=== PATIENT | female | born 1955 | race Caucasian/White ===

== ENCOUNTER 2020-07-10 02:39 | Outpatient (CLI) | payer MEDICARE, SELFPAY ==
[2020-07-10 19:47] LABS: SARS-CoV-2 RNA PCR Negative
== END 2020-07-10 02:40 | disposition home or self-care (01) ==
LOC: ANHCOVIDDT 02:40
PROVIDERS: PCP Family Medicine; Visit Provider Internal Medicine Gastroenterology
DX: Z01.812 Encounter for preprocedural laboratory examination (principal); Z20.828 Contact with and (suspected) exposure to other viral communicable diseases
CPT/HCPCS: 87635; C9803; U0003

== ENCOUNTER → 2020-07-11 13:30 | Outpatient (CLI) | payer MEDICARE, SELFPAY ==
--- NOTE | ~2020-07-11 | MM_ITS ---
EXAMINATION: MM screening [facility] BI w darnell HISTORY: Screening mammogram TECHNIQUE: Craniocaudal and mediolateral oblique 3-D tomosynthesis images were obtained and synthetic 2-D images were generated. CAD analysis was submitted and interpreted. COMPARISON: 11/09/2018, 10/26/2018, 09/30/2017 BREAST PARENCHYMAL COMPOSITION: The breasts are heterogeneously dense, which may obscure small masses . FINDINGS: RIGHT BREAST: There is no evidence of suspicious mass, calcification, or architectural distortion to suggest malignancy. There has been no significant interval change. LEFT BREAST: An asymmetry is present in the middle/posterior third of the outer breast 9 cm from the nipple on craniocaudal tomosynthesis image 32/75. IMPRESSION: 1. Left breast asymmetry on the craniocaudal view. 2. Additional mammographic views and possible breast ultrasound are recommended. BI-RADS Category 0: Incomplete: Needs additional imaging evaluation. Reviewed, dictated and finalized at location A. ONAL PRODUCTION MANAGER IMPRESSION: 1. Left breast asymmetry on the craniocaudal view. 2. Additional mammographic views and possible breast ultrasound are recommended . BI-RADS Category 0: Incomplete: Needs additional imaging evaluation.
== END ==
PROVIDERS: PCP Family Medicine; Visit Provider Physician Assistant
DX: Z12.31 Encounter for screening mammogram for malignant neoplasm of breast (principal); R92.8 Other abnormal and inconclusive findings on diagnostic imaging of breast
CPT/HCPCS: 77063; 77067

== ENCOUNTER 2020-07-13 04:26 | Day surgery (SDC) | payer MEDICARE, SELFPAY ==
[2020-07-06 15:08] VITALS: BMI 24.5
[2020-07-13 08:41] VITALS: BP 141/85; PULSE 66; RESP 20; O2SAT 99
[2020-07-13] MEDS: LACTATED RINGERS 1,000 ML 150 ML IV CONT (08:58)
--- NOTE | 2020-07-13 09:04 | WPDANESEPPF ---
Anes - Initial Pre Proc Eval Procedure: Operation Date: 07/13/20 10:15 Proposed Procedures p Screening Colonoscopy - Erich Zarate MD Date/Time: 07/13/20 09:04 Surgeon: Erich Zarate MD Pre Op Diagnosis: Neoplasm Screening Patient Data Age: 64 Gender: F Height: 5 ft 5 in Weight: 65.8 kg Last Vital Signs Pulse 66 07/13/20 08:41 Resp 20 07/13/20 08:41 BP 141/85 H 07/13/20 08:41 Pulse Ox 99 07/13/20 08:41 Allergies Allergy/AdvReac Type Severity Reaction Status Date / Time amoxicillin Allergy Unknown Hives Verified 07/13/20 08:40 Home Medications Medication Instructions Recorded Confirmed Type No Home Medications 07/13/20 07/13/20 History Patient hx anesthesia problems: none Family hx anesthesia problems: none PMFSH Past Medical History Medical History Abnormal results of thyroid function studies Elevated blood-pressure reading, without diagnosis of hypertension Hypothyroidism, unspecified Family History Family History Mother Hypertension Patient's mother is in good health Carcinoma of colon Father Family history of Alzheimer's disease, Onset Age: 60 Social History Social History Social History: Smoking status: Never smoker Second hand tobacco smoke exposure: No Alcohol intake: current Drinks per week: 7 Substance use: never Substance use type: unknown Living arrangements: with family Gender identity (if verbalized by the patient): Female Spiritual care concerns: No Anes - Eval Final PreProcedure Day of Procedure 07/13/20 09:04 Patient weight: normal Heart: regular rate and rhythm Lungs: clear to auscultation Airway: Mallampati scale class II Neurological: alert and oriented Last oral intake: >/= 8 hours ASA classification: II Emergent: no Anesthetic plan: proceed Anesthesia type and monitoring: general GIVS and standard monitoring Informed Consent: The patient's anesthetic plan and its attendant risks and benefits were discussed with the patient/family/POA. Questions were solicited and answers provided to the satisfaction of the patient/family/POA.
--- NOTE | 2020-07-13 09:50 | PM.HPGS ---
History of Present Illness History of Present Illness Consent: Risks, benefits, and alternatives have been discussed and questions answered. Patient agrees to proceed with procedure. Chief complaint: Neoplasm Screening Narrative: Cristy Obando is a 64 year old female here for screening colon, last one 2014. Mother with colon ca. Review of Systems Constitutional: Constitutional: Denies headache(s) and Denies weakness Eyes: Eyes: Denies blurry vision ENT: Reports Normal hearing present, Denies headache(s) and Denies neck pain Cardiovascular: Cardiovascular: Denies chest pain and Denies dyspnea Respiratory: Respiratory: Denies dyspnea Gastrointestinal: Gastrointestinal: Reports no additional gastrointestinal complaints Genitourinary: Genitourinary: Denies dysuria Musculoskeletal: Musculoskeletal: Denies neck pain Integumentary/Breasts: Skin/Breast: Denies dry skin Neurologic: Reports Normal hearing present, Denies headache(s) and Denies weakness Psychiatric: Psychiatric: Denies anxiety Endocrine: Endocrine: Denies change in body appearance Hematologic/Lymphatic: Hematologic/Lymphatic: Denies easy bleeding Allergic/Immunologic: Allergic/Immunologic: Denies urticaria PMFSH Past Medical History Medical History Abnormal results of thyroid function studies Elevated blood-pressure reading, without diagnosis of hypertension Hypothyroidism, unspecified Family History Family History Mother Hypertension Patient's mother is in good health Carcinoma of colon Father Family history of Alzheimer's disease, Onset Age: 60 Social History Social History Social History: Smoking status: Never smoker Second hand tobacco smoke exposure: No Alcohol intake: current Drinks per week: 7 Substance use: never Substance use type: unknown Living arrangements: with family Gender identity (if verbalized by the patient): Female Spiritual care concerns: No Meds Home Medications and Allergies Home Medications Medication Instructions Recorded Confirmed Type No Home Medications 07/13/20 07/13/20 History Allergies Allergy/AdvReac Type Severity Reaction Status Date / Time amoxicillin Allergy Unknown Hives Verified 07/13/20 08:40 Vital Signs Vital Signs - 24 hr 07/13/20 08:41 Pulse Rate 66 Respiratory Rate 20 Blood Pressure 141/85 H Pulse Oximetry 99 Exam Const: General: comfortable and no acute distress HENMT: General nose exam: Normal nares present Eyes: General: appearance normal, both eyes and all related structures Neck: Neck: no JVD Resp: Auscultation: clear to auscultation bilaterally Cardio: Rate: regular rate Rhythm: regular rhythm GI: Inspection: non-distended GI Palp: Yes Soft to palpation Skin: General skin exam: normal color Neuro: General: gait normal Speech: normal speech Extrem: General: normal to inspection Psych: Mental Status: mental status grossly normal Assessment and Plan Assessment and plan (1) Family history of colon cancer in mother: Code(s): Z80.0 - Family history of malignant neoplasm of digestive organs Status: Acute Assessment and Plan: will proceed with colonoscopy
[2020-07-13 10:12] VITALS: BP 104/63; PULSE 60; RESP 20; O2SAT 97
[2020-07-13 10:22] VITALS: BP 116/72; PULSE 66; RESP 18; O2SAT 100
[2020-07-13 10:32] VITALS: BP 127/75; PULSE 61; RESP 15; O2SAT 100
[2020-07-13 10:42] VITALS: BP 136/72; PULSE 57; RESP 18; O2SAT 100
== END 2020-07-13 10:51 | disposition home or self-care (01) ==
PROVIDERS: PCP Family Medicine; Visit Provider Internal Medicine Gastroenterology
PROC: 0DJD8ZZ Inspection of Lower Intestinal Tract, Via Natural or Artificial Opening Endoscopic (ICD-10-PCS; CPT 45378; principal; 2020-07-13 10:15)
DX: Z12.11 Encounter for screening for malignant neoplasm of colon (principal); K64.8 Other hemorrhoids; Z80.0 Family history of malignant neoplasm of digestive organs
CPT/HCPCS: G0105; J2704; J7120

== ENCOUNTER → 2020-08-02 07:52 | Outpatient (CLI) | payer MEDICARE, SELFPAY ==
--- NOTE | ~2020-08-02 | MMUS_ITS ---
EXAMINATION: MM diagnostic mammo unilat LT, US breast LT complete HISTORY: Follow-up left breast asymmetry TECHNIQUE: Additional 3-D tomosynthesis images of the left breast were performed and synthetic 2-D im ages were generated. CAD analysis was submitted and interpreted. High resolution complete left breast ultrasound was performed. COMPARISON: Comparison to multiple prior studies sequentially, with oldest reviewed study dated 02/2018. BREAST PARENCHYMAL COMPOSITION: The breasts are heterogenously dense, which may obscure small masses FINDINGS: MAMMOGRAPHIC FINDINGS: There are focal asymmetries in the upper aspect of the left breast, although no discrete mass is iden tified. There are no suspicious calcifications. ULTRASOUND: Left breast ultrasound: At 11:00, 6 cm from the nipple, there is an irregular shaped hypoechoic mass measuring 1.6 cm greatest dimension. There is dense posterior shadowing with slightly irregular carey ns. There is marginal vascularity. At 2:00, 6 cm from the nipple, there is an irregular shaped hypoec hoic mass with dense posterior shadowing measuring approximately 2 cm. No significant internal vascul arity. No other discrete solid or cystic masses in the left breast. IMPRESSION: 1. 2 separate abnormal left breast masses located at 11 and 2:00 positions. Recommend ultrasound-guid ed biopsy of these lesions. BI-RADS CATEGORY 4-SUSPICIOUS ABNORMALITY RECOMMENDATION: Ultrasound-guided left breast biopsies recommended. Reviewed, dictated and finalized at location A. CHOOL LEAD TEACHER IMPRESSION: 1. 2 separate abnormal left breast masses located at 11 and 2:00 positions. Rec ommend ultrasound-guided biopsy of these lesions. BI-RADS CATEGORY 4-SUSPICIOUS ABNORMALITY RECOMMENDATION: Ultrasound-guided left breast biopsies recommended.
== END ==
PROVIDERS: Visit Provider Physician Assistant
DX: N63.22 Unspecified lump in the left breast, upper inner quadrant (principal)
CPT/HCPCS: 76641; 77065

== ENCOUNTER 2020-08-27 10:12 | Outpatient (CLI) | payer MEDICARE, SELFPAY ==
--- NOTE | ~2020-08-27 | US_ITS ---
EXAMINATION: US breast LT limited HISTORY: Patient presents for ultrasound guided biopsy of two left breast masses. TECHNIQUE: Limited ultrasound in the upper outer quadrant and upper inner quadrant of the left breast was performed. FINDINGS: At real-time scanning, no discrete mass is identified at the 2:00 location or the 11:00 loc ation to target for ultrasound guided biopsy. This was discussed with the patient and a course of ashtyn rt-term interval follow-up mammogram and ultrasound in six months were agreed upon. IMPRESSION: Probably benign left breast findings. Left diagnostic mammogram and ultrasound in six months are jailene mmended. BI-RADS category 3, probably benign findings. Reviewed, dictated and finalized at location A. NG MACHINE TENDER IMPRESSION: Probably benign left breast findings. Left diagnostic mammogram and ultrasound in six months are recommended. BI-RADS category 3, probably benign findings.
== END 2020-08-27 10:13 | disposition home or self-care (01) ==
PROVIDERS: PCP Family Medicine; Visit Provider Surgery
DX: R92.8 Other abnormal and inconclusive findings on diagnostic imaging of breast (principal)
CPT/HCPCS: 76642

== ENCOUNTER → 2021-04-23 08:23 | Outpatient (CLI) | payer MEDICARE, SELFPAY ==
--- NOTE | ~2021-04-23 | DEXA_ITS ---
Bone Density Report Name: Cristy Obando Age: 65 Sex: Female Ethnicity: White Date of : 1955 Indication: postmenopausal; screening for osteoporosis; Referring Provider: LARRY GARCIA Study: Bone densitometry was performed. Exam Date: April 23, 2021 Accession number: [id number] Bone Density: Region BMD T-score Z-score Classification AP Spine (L1-L4) 1.027 -0.2 1.7 Normal Femoral Neck (Left) 0.683 -1.5 0.1 Osteopenia Total Hip (Left) 0.855 -0.7 0.6 Normal Femoral Neck (Right) 0.676 -1.6 0.1 Osteopenia Total Hip (Right) 0.819 -1.0 0.3 Normal Total Hip Mean 0.837 -0.9 0.5 Normal World Health Organization criteria for BMD impression classify patients as: Normal (T-score at or above -1.0), Osteopenia (T-score between -1.0 and -2.5), or Osteoporosis (T-score at or below -2.5). 10-year Fracture Risk(1): Major Osteoporotic Fracture 9.1% Hip Fracture 1.1% Reported Risk Factors: [place] (), Neck BMD=0.676, BMI=23.0 (1) FRAX(R) Version 3.08. Fracture probability calculated for an untreated patient. Fracture probability may be lower if the patient has received treatment. Clinical Information Provided by Patient: Patient maximum height was 65.5 Menopause Age: 53 Does not regularly consume dairy products Onset of menses at age 11 Number of children 3 Impression: The patient has low bone mass, based on the Right Femoral Neck T-score. The patient has an estimated ten-year risk of hip fracture of 1.1% and an estimated ten-year risk of major fracture of 9.1%, based on the WHO FRAX algorithm. Discussion: BONE DENSITY IS LOW AT ONE OR MORE SKELETAL SITES. This patient's lowest T-score is low at one or more skeletal sites. It meets the World Health Organization's (WHO) criteria for ?low bone mass? (T-score between -1.0 and -2.5). The patient's 10-year risk of fracture as calculated by FRAX is less than the threshold where pharmacological therapy is recommended by the National Osteoporosis Foundation (NOF). However, all treatment decisions require clinical judgment and consideration of individual patient factors, including patient preferences, comorbidities, previous drug use, risk factors not captured in the FRAX model (e.g., frailty, falls, vitamin D deficiency, increased bone turnover, interval significant decline in bone density) and possible under or overestimation of fracture risk by FRAX. The patient should follow a healthful lifestyle (good nutrition with adequate calcium and vitamin D, and appropriate weight-bearing exercise). Follow-Up: Consider repeating this study in 2 to 3 years to reassess this patient's status, or sooner if there is some new clinical indication. Reported by: JOCY on 04/23/2021 8:45:00 AM. Reviewed, d
--- NOTE | ~2021-04-23 | MMUS_ITS ---
EXAMINATION: MM diagnostic [facility] LT w darnell, US breast LT limited HISTORY: Follow-up left breast asymmetry TECHNIQUE: Additional 3-D tomosynthesis images of the left breast were performed and synthetic 2-D im ages were generated. CAD analysis was submitted and interpreted. High resolution Limited left breast ultrasound was performed. COMPARISON: Comparison to multiple prior studies sequentially, with oldest reviewed study dated 02/2018. BREAST PARENCHYMAL COMPOSITION: Breast composed of scattered areas of fibroglandular density. FINDINGS: MAMMOGRAPHIC FINDINGS: There are no suspicious masses, calcifications or architectural distortion in the left breast to sugg est malignancy. ULTRASOUND: Limited left breast ultrasound: At 11:00, 5 cm from the nipple there is a 5 mm cyst. No other discret e mass is identified. There are multiple areas of heterogeneous shadowing tissue without discrete mas s. No sonographic evidence for malignancy. IMPRESSION: 1. No evidence for malignancy in the left breast. 2. Routine yearly screening mammogram and regular clinical breast examination are recommended. BI-RADS CATEGORY 2 - BENIGN FINDINGS Reviewed, dictated and finalized at location A. IMPRESSION: 1. No evidence for malignancy in the left breast. 2. Routine yearly screening mammogram and regular clinical breast examination a re recommended. BI-RADS CATEGORY 2 - BENIGN FINDINGS
== END ==
PROVIDERS: PCP Family Medicine; Visit Provider Family Medicine
DX: R92.8 Other abnormal and inconclusive findings on diagnostic imaging of breast (principal); Z78.0 Asymptomatic menopausal state; M85.89 Other specified disorders of bone density and structure, multiple sites
CPT/HCPCS: 76642; 77061; 77065; 77080; G0279

== ENCOUNTER → 2022-08-09 11:17 | Outpatient (CLI) | payer MEDICARE, SELFPAY ==
--- NOTE | ~2022-08-09 | MM_ITS ---
EXAMINATION: MM screening [facility] w darnell HISTORY: Screening TECHNIQUE: Craniocaudal and mediolateral oblique 3-D tomosynthesis images were obtained and synthetic 2-D images were generated. CAD analysis was submitted and interpreted. COMPARISON: Comparison to multiple prior studies sequentially, with oldest reviewed study dated 02/2018. BREAST PARENCHYMAL COMPOSITION: The breasts are heterogeneously dense, which may obscure small masses . FINDINGS: There is no evidence of suspicious mass, calcification, or architectural distortion to sugg est malignancy in either breast. There has been no suspicious interval change. IMPRESSION: 1. No mammographic evidence of malignancy. 2. Recommend routine screening mammography in one year. BI-RADS Category 1: Negative Reviewed, dictated and finalized at location A. RATOR INSERTER
== END ==
PROVIDERS: PCP Family Medicine; Visit Provider Family Medicine
DX: Z12.31 Encounter for screening mammogram for malignant neoplasm of breast (principal)
CPT/HCPCS: 77063; 77067

== ENCOUNTER → 2023-06-23 15:12 | Outpatient (CLI) | payer MEDICARE, SELFPAY ==
--- NOTE | ~2023-06-23 | XR_ITS ---
XR lumbar spine 2-3V DATE: 06/23/2023 15:31 INDICATION: Low back pain TECHNIQUE: Standing AP and lateral views COMPARISON: None FINDINGS: There is diffuse osteopenia. There is rotatory levoscoliosis of the thoracolumbar spine. There is mild compensatory lower lumbar d extroscoliosis. There is approximately 7 mm leftward translation at L2-3. There is degenerative change at the apophyseal joints in the lower lumbar area in particular with ass ociated grade 1 anterolisthesis at L4-5 and borderline grade 1/grade 2 anterolisthesis at L5-S1. Moderately severe degenerative disc disease at L2-3 and L3-4 on the left in particular moderate degen erative disease at the remaining lumbar interspaces. The sacroiliac joints are intact. IMPRESSION: Rotatory levoscoliosis of the thoracic and upper lumbar spine and mild compensatory dextr o scoliosis of the lower lumbar spine Multilevel degenerative disease, most prominent on the left at L2-3 and L3-4 7 mm leftward translation at L2-3 Grade 1 anterolisthesis at L4-5 and borderline grade 1/grade 2 anterolisthesis at L5-S1 due to degene rative change at the apophyseal joints Osteopenia Reviewed, dictated and finalized at location L. IMPRESSION: Rotatory levoscoliosis of the thoracic and upper lumbar spine and m ild compensatory dextro scoliosis of the lower lumbar spine Multilevel degenerative disease, most prominent on the left at L2-3 and L3-4 7 mm leftward translation at L2-3 Grade 1 anterolisthesis at L4-5 and borderline grade 1/grade 2 anterolisthesis at L5-S1 due to degenerative change at the apophyseal joints Osteopenia
--- NOTE | ~2023-06-23 | XR_ITS ---
XR_CERV2-3V_CR DATE: 06/23/2023 15:31 INDICATION: Neck pain TECHNIQUE: AP, open-mouth, lateral views COMPARISON: None FINDINGS: There is straightening of the cervical spine. There is mild cervicothoracic dextroscoliosis . Osteopenia. C1 and C2 are normally aligned and the odontoid process is intact. There is approximately 2 mm anterolisthesis at C3-4. Moderate degenerative disc disease at C4-5 and moderately severe degenerative disc disease at C5-6 an d C6-7. There is uncovertebral joint spurring in the mid and lower cervical spine from C3-4 through C6-7. The re is degenerative change at the apophyseal joints throughout the cervical spine. No fracture or dislocation or locked facet or prevertebral soft tissue swelling is detected. IMPRESSION: Straightening and mild dextro scoliosis Osteopenia 2 mm anterolisthesis at C3-4 Multilevel degenerative disc disease, most prominent C5-6 and C6-7 Uncovertebral joint spurring at C3-4 through C6-7 and degenerative change of the apophyseal joints th roughout the cervical spine Reviewed, dictated and finalized at Location A. Reviewed, dictated and finalized at location L. IMPRESSION: Straightening and mild dextro scoliosis Osteopenia 2 mm anterolisthesis at C3-4 Multilevel degenerative disc disease, most prominent C5-6 and C6-7 Uncovertebral joint spurring at C3-4 through C6-7 and degenerative change of th e apophyseal joints throughout the cervical spine
== END ==
PROVIDERS: PCP Physician Assistant; Visit Provider Physician Assistant
DX: M54.50 Low back pain, unspecified (principal); M41.84 Other forms of scoliosis, thoracic region; M41.86 Other forms of scoliosis, lumbar region; M51.36 Other intervertebral disc degeneration, lumbar region; M43.16 Spondylolisthesis, lumbar region; M85.89 Other specified disorders of bone density and structure, multiple sites; M43.12 Spondylolisthesis, cervical region; M50.323 Other cervical disc degeneration at C6-C7 level
CPT/HCPCS: 72040; 72100

== ENCOUNTER 2024-02-02 13:22 | Outpatient (CLI) | payer MEDICARE, SELFPAY ==
--- NOTE | ~2024-02-02 | MM_ITS ---
EXAMINATION: MM screening [facility] BI w darnell HISTORY: Screening TECHNIQUE: Craniocaudal and mediolateral oblique 3-D tomosynthesis images were obtained and synthetic 2-D images were generated. CAD analysis was submitted and interpreted. COMPARISON: Comparison to multiple prior studies sequentially, with oldest reviewed study dated 12/2018. BREAST PARENCHYMAL COMPOSITION: Dense: The breasts are heterogeneously dense, which may obscure small masses FINDINGS: There is no evidence of suspicious mass, calcification, or architectural distortion to sugg est malignancy in either breast. There has been no suspicious interval change. IMPRESSION: 1. No mammographic evidence of malignancy. 2. Recommend routine screening mammography in one year. BI-RADS Category 1: Negative Reviewed, dictated and finalized at location B.
== END 2024-02-02 13:23 ==
LOC: MICIMG 13:23
PROVIDERS: PCP Family Medicine; Visit Provider Physician Assistant
DX: Z12.31 Encounter for screening mammogram for malignant neoplasm of breast (principal)
CPT/HCPCS: 77063; 77067

== ENCOUNTER 2024-04-11 12:41 | Outpatient (CLI) | payer MEDICARE, SELFPAY ==
--- NOTE | ~2024-04-11 | DEXA_ITS ---
Bone Density Report Name: RAINE LOUIS Age: 68 Sex: Female Ethnicity: White Date of : 1955 Indication: postmenopausal; screening for osteoporosis; height loss; Referring Provider: SIMONE HERNANDEZ Study: Bone densitometry was performed. Exam Date: April 11, 2024 Accession number: [id number] Bone Density: Region BMD T-score Z-score Classification AP Spine(L1-L4) 1.097 0.5 2.6 Normal Femoral Neck (Left) 0.683 -1.5 0.3 Osteopenia Total Hip (Left) 0.799 -1.2 0.3 Osteopenia Femoral Neck (Right) 0.726 -1.1 0.7 Osteopenia Total Hip (Right) 0.811 -1.1 0.4 Osteopenia Total Hip Mean 0.805 -1.2 0.4 Osteopenia World Health Organization criteria for BMD impression classify patients as: Normal (T-score at or above -1.0), Osteopenia (T-score between -1.0 and -2.5), or Osteoporosis (T-score at or below -2.5). 10-year Fracture Risk(1): Major Osteoporotic Fracture 10% Hip Fracture 1.5% Reported Risk Factors: [place] (), Neck BMD=0.683, BMI=24.6 (1) FRAX(R) Version 3.08. Fracture probability calculated for an untreated patient. Fracture probability may be lower if the patient has received treatment. Clinical Information Provided by Patient: Has used the following medications: Vitamin D, Calcium Patient maximum height was 65.5 Does not regularly consume dairy products Drinks caffeinated beverages Onset of menses at age 12 Number of children 3 Impression: The patient has low bone mass, based on the Left Femoral Neck T-score. The patient has an estimated ten-year risk of hip fracture of 1.5% and an estimated ten-year risk of major fracture of 10%, based on the WHO FRAX algorithm. Discussion: BONE DENSITY IS LOW AT ONE OR MORE SKELETAL SITES. This patient's lowest T-score is low at one or more skeletal sites. It meets the World Health Organization's (WHO) criteria for ?low bone mass? (T-score between -1.0 and -2.5). The patient's 10-year risk of fracture as calculated by FRAX is less than the threshold where pharmacological therapy is recommended by the National Osteoporosis Foundation (NOF). However, all treatment decisions require clinical judgment and consideration of individual patient factors, including patient preferences, comorbidities, previous drug use, risk factors not captured in the FRAX model (e.g., frailty, falls, vitamin D deficiency, increased bone turnover, interval significant decline in bone density) and possible under or overestimation of fracture risk by FRAX. The patient should follow a healthful lifestyle (good nutrition with adequate calcium and vitamin D, and appropriate weight-bearing exercise). Follow-Up: Consider repeating this study in 2 to 3 years to reassess this patient's status, or sooner if there is some new clinical indication. Repo
== END 2024-04-11 12:42 | disposition home or self-care (01) ==
PROVIDERS: PCP Family Medicine; Visit Provider Physician Assistant
DX: Z78.0 Asymptomatic menopausal state (principal); M85.852 Other specified disorders of bone density and structure, left thigh; M85.851 Other specified disorders of bone density and structure, right thigh
CPT/HCPCS: 77080

== ENCOUNTER 2025-03-13 13:57 | Outpatient (CLI) | payer MEDICARE, SELFPAY ==
--- OUTSIDE RECORDS SUMMARY | 2025-03-13 14:01 | XMS_ITS | Clinical Summary ---
Author Organization [facility] Elvie valderrama Quirino Address [address] [facility] [place] [address] Care Team Providers Care Hardware Design Engineer Name Role Phone Unavailable Primary Care Provider Unavailabl e Allergies Active Allergy Reactions Criticality Noted Date Comments Amoxicillin Rash Low 03/13/2025 Medications levothyroxine 50 mcg tablet TAKE 1 TABLET BY MOUTH ONCE DAILY THURSDAY THRU THURSDAY AND 2 TABLETS ON THURSDAY AND Thursday02/07/2025 Active Encounters Date Type Department Care Team Description 03/13/2025 1:30 PM CDT Office Visit [facility] Oncology and Hematology - [place] [address] [facility] [address] [place] [address] Aurelio Fernandez MD Leukopenia, unspecified type (Primary Dx); Chronic anemia from Last 3 Months Family History Medical History Relation Name Comments No Known Problems Brother 1 Lung Cancer Brother 2 No Known Problems Child 1 No Known Problems Child 2 No Known Problems Child 3 Heart Disease Mother No Known Problems Sister 1 No Known Problems Sister 2 No Known Problems Sister 3 No Known Problems Sister 4 Relation Name Status Comments Brother 1 Alive Brother 2 Alive Child 1 Alive Child 2 Alive Child 3 Alive Father Mother Alive Sister 1 Alive Sister 2 Alive Sister 3 Alive Sister 4 Alive Social History Tobacco Use Types Packs/Day Years Used Date Smoking Tobacco: Never Smokeless Tobacco: Never Tobacco Cessation:Counseling Given: Not Answered Alcohol Use Standard Drinks/Week Comments Yes 0 (1 standard drink = 0.6 oz pur e alcohol) socially Comments Unknown Sex and Gender Information Value Date Recorded Sex Assigned at Not on file Legal Sex Female 11:49 AM CDT Gender Identity Not on file Sexual Orientation Not on file Last Filed Vital Signs Vital Sign Reading Time Taken Comments Blood Pressure 97/65 03/13/2025 1:20 PM CDT Pulse 67 03/13/2025 1:17 PM CDT Temperature 37.1 C (98.7 F) 03/13/2025 1:17 PM CDT Respiratory Rate 16 03/13/2025 1:17 PM CDT Oxygen Saturation 96% 03/13/2025 1:17 PM CDT Inhaled Oxygen Concentration - - Weight 66 kg (145 lb 9.6 oz) 03/13/2025 1:17 PM CDT Height - - Body Mass Index - - Plan of Treatment Upcoming Encounters Date Type Department Care Team (Late st Contact Info) Description 04/18/2025 4:35 PM CDT Telephone Check Up [facility] Oncology and Hematology [facility] [address] [facility] [address] [place] [address] Aurelio Fernandez MD [address] [facility] [employer] [address] [place] [address] Health Maintenance Due Date Last Done Comments DTAP/TDAP/TD VACCINES (1 - Tdap) 1972 BREAST CANCER SCREENING 1993 COLORECTAL SCREENING 1998 Colorectal Cancer Screening 1998 FIT-DNA Q 3 years 1998 FIT/FOBT Q 1 year 1998 Flex Sig/CT Colonography Q 5 years 1998 PNEUMOCOCCAL VACCINE 50+ YEA RS (1 of 1 - PCV) 11/30/2003 ZOSTER VACCINE (1 of 2) 11/30/2003 OSTEOPOROSIS SCREENING 2018 COVID-19 Vaccine ( season) 04/24/202407/2021, 10/05/2020 [place]) Prev entative Visit/Annual Wellness Visit 08/24/2024 INFLUENZA VACCINE (#1) 2025 RSV VACCINE (60+ or ) (1 - 1-dose 75+ series) 2028 Insurance [employer] PPO [facility]
--- OUTSIDE RECORDS SUMMARY | 2025-03-13 14:01 | XMS_ITS | Encounter Summary ---
Author Organization [facility] AMADEO Castelan [facility] Address [address] [place] [address] Care Team Providers Care Soda Fountain Manager Name Role Phone Unavailable Primary Care Provider Unavailabl e Reason for Referral * Radiology Services (Routine) - Closed Specialty Diagnoses / Procedures Referred By Contac t Referred To Contact Diagnoses Leukopenia, unspecified type Procedures US ABDOMEN COMPLETE Aurelio Fernandez MD [address] [place] [phone] Phone: tel: fax: [place] [phone] Referral ID Status Reason Start Date Expiration Date V isits Requested Visits Authorized [id number] Closed [facility] CTS 03/13/2025 04/13/2026 1 1 Encounter Details Date Type Department Care Team (Late st Contact Info) Description 03/13/2025 1:30 PM CDT Office Visit [facility] Oncology and Hematology [address] [facility] [address] [place] [address] Aurelio Fernandez MD [address] [place] [address] Leukopenia, unspecified type (Primary Dx); Chronic anemia Social History Tobacco Use Types Packs/Day Years [...] on file Sexual Orientation Not on file documented as of this encounter Last Filed Vital Signs Vital Sign Reading [...] - - Body Mass Index - - documented in this encounter Plan of Treatment Upcoming Encounters Date Type Department Care Team (Late st Contact Info) Description 04/18/2025 4:35 PM CDT Telephone Check Up [facility] Oncology and Hematology - [place] [address] [facility] [address] [place] [address] Aurelio Fernandez MD [address] [facility] [address] [place] [address] Scheduled Orders Name Type Priority Associated Diagnoses Orde r Schedule CBC WITH DIFFERENTIAL Lab Stat Chronic anemia Expected: 03/13/2025, Expires: 03/13/2026 COMPREHENSIVE METABOLIC PANEL Lab Stat Chronic anemia Expected: 03/13/2025, Expires: 03/13/2026 FERRITIN Lab Routine Chronic anemia Expected: 03/13/2025, Expires: 03/13/2026 IRON, TIBC, AND PERCENT SATURATION Lab Routine Chronic anemia Expected: 03/13/2025, Expires: 03/13/2026 VITAMIN B12 AND FOLATE Lab Routine Chronic anemia Expected: 03/13/2025, Expires: 03/13/2026 METHYLMALONIC ACID Lab Routine Chronic anemia Expected: 03/13/2025, Expires: 03/13/2026 TRANSFERRIN RECEPTOR TFR SOLUBLE Lab Routine Chronic anemia Expected: 03/13/2025, Expires: 03/13/2026 US ABDOMEN COMPLETE Imaging Routine Leukopenia, unspecified type 1 Occurrences starting 03/13/2025 until 03/13/2026 ONEL SCREEN W/REFLEX Lab Routine Leukopenia, unspecified type Expected: 03/13/2025, Expires: 03/13/2026 FLOW CYTOMETRY PANEL Lab Routine Leukopenia, unspecified type Expected: 03/13/2025, Expires: 03/13/2026 documented as of this encounter Visit Diagnoses Diagnosis Leukopenia, unspecified type- Primary Chronic anemia Anemia, unspecified documented in this encounter
--- OUTSIDE RECORDS SUMMARY | 2025-03-13 14:01 | XMS_ITS | Clinical Summary ---
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 Gender Identity Not on file Sexual Orientation Not on file Plan of Treatment Health Maintenance Due Date Last Done Comments Colorectal Cancer Screening Colonoscopy (10 Years) 1955 Hepatitis C 11/30/1971 DTaP, Tdap and Td Vaccines ( 1 - Tdap) 1972 Mammogram Screening 1993 Annual Medicare Wellness Visit 2018 Dexa Scan (General) 2018 Pneumococcal Vaccine: 50+ Years (2 of 2 - PPSV23) 06/07/2021 06/07/2020 COVID-19 Vaccine (3 - 2023-2 5 season) 2024 11/02/2020, 10/05/2020 RSV Immunization or 60+ Years (1 - 1-dose 75+ series) 2028 Zoster Vaccines Completed 08/29/2020, 06/07/2020 Meningococcal B Vaccine Aged Out No l onger eligible based on patient's age to complete this topic Meningococcal Vaccine Aged Out No kalee yvon eligible based on patient's age to complete this topic RSV Immunizations Under 20 Months Aged Out No longer eligible b ased on patient's age to complete this topic Insurance HUMANA Care Teams Mash Grinder Relationship Specialty Start Date End Date None, Provider, PCP - General 11/02/20
--- NOTE | 2025-03-13 14:08 | CY_PTH ---
PATIENT: Cristy Obando LOC: ANHLAB #:[id number] AGE/SX: 69/F ROOM: RE03/13/[address]: Aurelio Fernandez MD : 1955 BED: DIS: 03/13/2025 SPEC #: [id number] RECD: 03/14/25 08:09 STATUS: CANDI REQ #: [id number] KEVIN: 03/13/25 14:[address]: Aurelio Fernandez DEPT: [facility] Cytology RECD BY: Delia Phillip ENTERED: 03/14/25 08:10 SP TYPE: Cytology OTHR DR: Casey Feldman MD Tissues: A - Peripheral Blood Procedures: Flow Cytometry
[2025-03-13 14:15] LABS: Hematocrit 38.4 % (37.0-47.0); Hemoglobin 12.6 g/dL (12.0-15.0); Immature Granulocyte Percent A 0.0 % (0-0.5); Lymphocytes Absolute Auto 1.25 K/mm3 (0.9-3.2); Mean Corpuscular HGB Conc 32.8 g/dl (32-36); Mean Corpuscular Hemoglobin 33.2 pg (26-34); Mean Corpuscular Volume 101.3 fl (80-100); Nucleated Red Blood Cells Absolute Auto 0.000 K/mm3 (0.0-0.012); Nucleated Red Blood Cells Perc 0.0 % (0.0-0.2); Platelet Count Result 198 k/mm3 (150-375); Red Blood Count 3.79 M/mm3 (4.2-5.4); White Blood Count 4.4 K/mm3 (4.5-10.0)
[2025-03-13 16:41] LABS: Iron 147 ug/dL (37-170)
[2025-03-13 16:42] LABS: Alanine Aminotransferase 19 U/L (6-35); Albumin Level 4.7 g/dL (3.5-5.1); Alkaline Phosphatase 46 U/L (38-126); Anion Gap 7 mmol/L (4-12); Aspartate Amino Transferase 38 U/L (14-36); Bilirubin,Total 0.6 mg/dL (0.2-1.3); Blood Urea Nitrogen 29 mg/dL (7-17); Calcium 9.4 mg/dL (8.4-10.2); Carbon Dioxide 25 mmol/L (22-30); Chloride 103 mmol/L (98-107); Estimated Glomerular Filt Rate 51; Glucose 92 mg/dL (65-110); Potassium 4.0 mmol/L (3.4-5.0); Sodium 135 mmol/L (137-145); Total Protein 7.6 g/dL (6.3-8.2)
[2025-03-13 16:50] LABS: Percent Iron Saturation 50 % (20-50)
[2025-03-13 17:17] LABS: Ferritin 85.00 ng/mL (11.1-264)
[2025-03-13 17:53] LABS: Vitamin B12 482.0 pg/mL (239-931)
[2025-03-15 09:08] LABS: ANA by IFA Rfx Titer/Pattern Negative (.)
== END 2025-03-13 13:58 | disposition home or self-care (01) ==
LOC: ANHLAB 13:59
PROVIDERS: PCP Family Medicine; Visit Provider Internal Medicine Hematology & Oncology
DX: D64.9 Anemia, unspecified (principal); D72.819 Decreased white blood cell count, unspecified
CPT/HCPCS: 36415; 80053; 82607; 82728; 82746; 83540; 83550; 83921; 84238; 85025; 86038; 88184

== ENCOUNTER 2025-04-10 13:57 | Outpatient (CLI) | payer MEDICARE, SELFPAY ==
--- NOTE | ~2025-04-10 | MM_ITS ---
EXAMINATION: MM screening [facility] BI w darnell HISTORY: Screening mammogram TECHNIQUE: Craniocaudal and mediolateral oblique 3-D tomosynthesis images were obtained and synthetic 2-D images were generated. CAD analysis was submitted and interpreted. COMPARISON: 02/02/2024, 08/09/2022, 04/23/2021 BREAST PARENCHYMAL COMPOSITION:Not Dense. There are scattered areas of fibroglandular density. FINDINGS: No suspicious mass, calcification, or architectural distortion are identified in either jessee ast to suggest malignancy. There has been no suspicious interval change. IMPRESSION: No mammographic evidence of malignancy. Recommend routine screening mammography in one year. BI-RADS Category 1: Negative Reviewed, dictated and finalized at location .
== END 2025-04-10 13:58 | disposition home or self-care (01) ==
LOC: MICIMG 13:59
PROVIDERS: PCP Family Medicine; Visit Provider Physician Assistant
DX: Z12.31 Encounter for screening mammogram for malignant neoplasm of breast (principal)
CPT/HCPCS: 77063; 77067

== ENCOUNTER 2025-04-11 08:13 | Outpatient (CLI) | payer MEDICARE, SELFPAY ==
--- NOTE | ~2025-04-11 | US_ITS ---
EXAMINATION: US Abdomen Complete INDICATION: Decreased white blood cell count PROCEDURE: Realtime High Resolution abdomen ultrasound. COMPARISON: No prior studies for comparison FINDINGS: Gallbladder within normal limits. No gallstones, pericholecystic fluid, gallbladder wall thickening or biliary dilatation. Common bile duct measures 4 mm. There is a 9 x 6 x 6 mm possible gallbladder wall polyp. Liver echotexture within normal limits without focal mass. Pancreas within normal limits. Pancreatic tail is obscured by bowel gas. Spleen is not enlarged. Renal echotexture is within normal limits bilaterally without hydronephrosis, contour deforming mass or renal stone. Right kidney measures 10.8 x 3.7 x 4.3 cm. Left kidney measures 10.6 x 4.1 x 3.7 cm. Visualized aspects of the aorta and IVC are within normal limits. Portal vein is patent. No sonographic Jeff's sign indicated by the technologist. IMPRESSION: 1: There is a 9 mm possible gallbladder wall polyp. A follow-up abdominal ultrasound in 6 months is recommended. 2. Otherwise, unremarkable abdominal ultrasound. Reviewed, dictated and finalized at location A. IMPRESSION: 1: There is a 9 mm possible gallbladder wall polyp. A follow-up abdominal ultra sound in 6 months is recommended. 2. Otherwise, unremarkable abdominal ultrasound.
--- OUTSIDE RECORDS SUMMARY | 2025-04-11 08:30 | XMS_ITS | Clinical Summary ---
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
--- OUTSIDE RECORDS SUMMARY | 2025-04-11 08:30 | XMS_ITS | Clinical Summary ---
Author Organization [facility] Elvie valderrama Angela Address [address] [place] [address] Care Team Providers Care Auto Parts Delivery Driver Name Role Phone Unavailable Primary Care Provider Unavailabl e Allergies Active Allergy Reactions Criticality Noted Date Comments Amoxicillin Rash Low 03/13/2025 Medications levothyroxine 50 mcg tablet TAKE 1 TABLET BY MOUTH ONCE DAILY THURSDAY THRU THURSDAY AND 2 TABLETS ON THURSDAY AND Thursday02/07/2025 Active Active Problems No known active problems Encounters Date Type Department Care Team Description 03/17/2025 Orders Only [facility] Oncology and Hematology - [place] [address] [place] [address] Aurelio Fernandez MD 03/16/2025 Abstract [facility] Oncology and Hematology - [place] [address] [place] [address] Praful Bowen CMA 03/16/2025 Orders Only [facility] Oncology and Hematology - [place] [address] [place] [address] Aurelio Fernandez MD 03/15/2025 Orders Only [facility] Oncology and Hematology - [place] [address] [place] [address] Aurelio Fernandez MD 03/14/2025 External Device Data [facility] ABSTRACTION Provider, Abstract 03/14/2025 External Device Data [facility] ABSTRACTION Provider, Abstract 03/14/2025 External Device Data [facility] ABSTRACTION Provider, Abstract 03/13/2025 1:30 PM CDT Office Visit [facility] Oncology and Hematology - [place] [address] [place] [phone] Aurelio Fernandez MD Leukopenia, unspecified type (Primary Dx); Chronic anemia 03/13/2025 Abstract [facility] Oncology and Hematology [facility] [address] [facility] [address] [place] [phone] Aurelio Fernandez MD from Last 3 Months Family History Medical [...] 04/18/2025 4:35 PM CDT Telephone Check Up [facility] Oncology and Hematology [facility] [address] [facility] [address] [place] [address] Aurelio Fernandez MD [address] [place] [address] Health Maintenance Due Date Last [...] Vaccine ( season) 04/24/202407/2021, 10/05/2020 Medicare [place] ([place]) Prev entative Visit/Annual Wellness Visit 08/24/2024 INFLUENZA VACCINE (#1) 2025 RSV VACCINE (60+ or ) (1 - 1-dose 75+ series) 2028 Procedures Procedure Name Priority Date/Time Associated Diagnosis Comments ONEL PANEL Routine 03/13/2025 2:48 PM CDT METHYLMALONIC ACID Routine 03/13/2025 11 :21 AM CDT CHG SOLUBLE TRANSFERRIN RECEPTOR Routine 03/13/2025 9:26 AM CDT COMPREHENSIVE METABOLIC PANEL Routine 03/13/2025 8:35 AM CDT CBC WITH AUTODIFFERENTIAL Routine 2024 8:23 AM CDT from Last 3 Months Results * ONEL PANEL (03/13/2025 2:48 PM CDT) Blood us Aurelio Fernandez MD CHEMISTRY ORDERABLES Final Resu lt * METHYLMALONIC ACID (03/13/2025 11:21 AM CDT) Blood Aurelio Fernandez MD CHEMISTRY ORDERABLES Final Resu lt * CHG SOLUBLE TRANSFERRIN RECEPTOR (03/13/2025 9:26 AM CDT) Aurelio Fernandez MD CHG - LABORATORY Final Result * COMPREHENSIVE METABOLIC PANEL (03/13/2025 8:35 AM CDT) Blood us Aurelio Fernandez MD CHEMISTRY ORDERABLES Final Resu lt * CBC WITH AUTODIFFERENTIAL (03/13/2025 8:23 AM CDT) Blood us Aurelio Fernandez MD HEMATOLOGY ORDERABLES Final Res ult from Last 3 Months Insurance [facility]
== END 2025-04-11 08:14 | disposition home or self-care (01) ==
PROVIDERS: PCP Family Medicine; Visit Provider Internal Medicine Hematology & Oncology
DX: D72.819 Decreased white blood cell count, unspecified (principal)
CPT/HCPCS: 76700